=== PATIENT | female | born 1940 | race Caucasian/White ===

== ENCOUNTER → 2016-07-11 | Outpatient (CLI) | payer OTHER ==
[~2016-07-11] MED LIST: ACIPHEX 20 MG T20 MG PO; ADULT LOW DOSE81 MG PO; AMBIEN CR 6.26.25 MG PO; CALCIUM 500+D1 EAC3 PO; CELEBREX 200 M200 MG PO; CENTRUM TABLET1 TAB PO; FOSAMAX 70 MG T70 M1 PO; GARLIQUE400 MG PO; GLUCOSAMINE-CH1 EA33 PO; ICAPS TABLET1 EACH PO; IMITREX 25 MG T25 MG PO; LUTEIN20 MG PO; MELATONIN3 MG PO; OMEGA-31000 MG PO; OXYCONTIN CR 1010 M1 PO; REGLAN 5 MG TAB5 M1 PO; VITAMIN D1000 UNI1 PO
== END ==
LOC: RAD 11:28
DX: R06.02 Shortness of breath (principal)

== ENCOUNTER → 2020-04-11 | Outpatient (CLI) | payer OTHER | LOC: LAB 08:16 | PROVIDERS: ATTEND Nurse Practitioner | DX: R50.9 Fever, unspecified (principal); R06.02 Shortness of breath; Z20.828 Contact with and (suspected) exposure to other viral communicable diseases ==

== ENCOUNTER → 2020-07-18 | Outpatient (CLI) | payer OTHER | LOC: CAT 13:45 | PROVIDERS: ATTEND Nurse Practitioner | DX: Z13.6 Encounter for screening for cardiovascular disorders (principal); I25.10 Atherosclerotic heart disease of native coronary artery without angina pectoris; E78.00 Pure hypercholesterolemia, unspecified ==

== ENCOUNTER → 2021-06-19 | Outpatient (CLI) | payer OTHER | LOC: ULTRA 11:44 | PROVIDERS: ATTEND Family Medicine | DX: M71.22 Synovial cyst of popliteal space [Baker], left knee (principal); M79.604 Pain in right leg; M79.605 Pain in left leg ==